=== PATIENT | female | born 1990 | race Caucasian/White ===

== ENCOUNTER 2019-12-29 06:59 | Observation (INO) ==
[2019-12-29] MEDS ORDERED: 0.9 % Sodium Chloride 1,000 ML IVC ONE (07:04)
[2019-12-29] MEDS ORDERED: *HR* HYDROmorphone (PF) 1 MG/ML SYRINGE IVP ONE ×3 (07:12→07:51)
[2019-12-29] MEDS ORDERED: Ondansetron 4 MG/2 ML VIAL IVP ONE (07:13)
[2019-12-29 07:23] LABS: Basophils % 0.1 %; Eosinophils # 0.2 K/mcL (0.0-0.6); Eosinophils % 3.2 %; Hematocrit 43.8 % (35.3-44.9); Hemoglobin 14.8 g/dL (11.5-15.4); Immature Granulocytes % 0.1 % (0-4); Lymphocytes # 2.2 K/mcL (0.6-4.6); Lymphocytes % 30.9 %; Mean Corpuscular HGB Conc 33.8 g/dL (31.6-35.5); Mean Corpuscular Hemoglobin 28.5 pg (28.0-33.3); Mean Corpuscular Volume 84.2 fL (83.0-100.0); Mean Platelet Volume 8.4 fL (9.4-12.4); Monocytes # 0.5 K/mcL (0.0-1.3); Monocytes % 6.7 %; Neutrophils # 4.2 K/mcL (1.6-8.9); Platelet Count 226 K/mcL (140-400); Red Cell Distribution Width 11.7 % (11.5-14.5); White Blood Count 7.1 K/mcL (4.3-11.1)
[2019-12-29 07:46] LABS: BUN/Creatinine Ratio 13 (6-26); Blood Urea Nitrogen 10 mg/dL (6-20); Calcium 9.4 mg/dL (8.6-10.3); Carbon Dioxide 28 mEq/L (23-29); Chloride 106 mEq/L (98-107); Glucose 104 mg/dL (70-105); Osmolality,Calculated 287 (280-300); Potassium 3.6 mEq/L (3.5-5.1); Sodium 139 mEq/L (136-145); eGFR For African Americans > 60 (> 60); eGFR For Non-African Americans > 60 (> 60)
[2019-12-29 08:26] LABS: Bilirubin,Urine Negative (Negative); Blood,Urine Large (Negative); Clarity,Urine Cloudy (Clear); Color,Urine Brown (Yellow); Glucose,Urine (UA) Normal (Normal); Ketones,Urine Negative (Negative); Protein,Urine 200 mg/dL (Neg-Trace); Urobilinogen,Urine Normal (Normal)
[2019-12-29 08:27] LABS: Leukocyte Esterase,Urine Negative (Negative); Nitrite,Urine Negative (Negative)
[2019-12-29 08:29] LABS: Bacteria,Urine Moderate per hpf (None-Few); Budding Yeast,Urine Few per hpf (None Seen); RBC,Urine TNTC per hpf (0-3); Squamous Epithelial Cell,Urine Few per hpf (None-Few); WBC,Urine 0-3 per hpf (0-3)
[2019-12-29] MEDS ORDERED: Ondansetron 4 MG/2 ML VIAL IVP PRN (09:18)
[2019-12-29] MEDS ORDERED: Naloxone 0.4 MG/ML INJ IVP PRN (09:18)
[2019-12-29] MEDS ORDERED: D5% in Water 1,000 ML IVC PRN (09:21)
[2019-12-29] MEDS ORDERED: Dextrose Gel 15 GM/37.5 ML TUBE PO PRN ×2 (09:21)
[2019-12-29] MEDS ORDERED: *HR* Dextrose 50 % in Water (Vial) 50 ML VIAL IVP PRN (09:21)
[2019-12-29 09:42] LABS: INR 1.1; Prothrombin Time 12.4 Seconds (9.4-12.1)
[2019-12-29 09:44] LABS: Activated Partial Thrombo Time 36.2 Seconds (26.0-36.0)
[2019-12-29] MEDS: *HR* OxyCODONE Immed Rel 5 MG TABLET PO PRN ×2 (11:07→21:05)
[2019-12-29] MEDS: cefTRIAXone 1,000 MG in Water for inj. (sterile) 10 ML IVP SCH (11:07)
[2019-12-29] MEDS: amLODIPine 5 MG TABLET PO SCH (11:07)
[2019-12-29] MEDS: Insulin LISPRO 300 UNITS/3 ML VIAL SQ SCH ×3 (12:28→23:22)
[2019-12-29] MEDS: Famotidine 20 MG/2 ML VIAL IVP SCH (23:18)
[2019-12-30 03:56] LABS: Basophils % 0.3 %; Eosinophils # 0.2 K/mcL (0.0-0.6); Eosinophils % 2.5 %; Hematocrit 39.7 % (35.3-44.9); Hemoglobin 13.3 g/dL (11.5-15.4); Immature Granulocytes % 0.1 % (0-4); Lymphocytes # 3.1 K/mcL (0.6-4.6); Lymphocytes % 40.8 %; Mean Corpuscular HGB Conc 33.5 g/dL (31.6-35.5); Mean Corpuscular Hemoglobin 28.6 pg (28.0-33.3); Mean Corpuscular Volume 85.4 fL (83.0-100.0); Mean Platelet Volume 8.9 fL (9.4-12.4); Monocytes # 0.5 K/mcL (0.0-1.3); Monocytes % 6.4 %; Neutrophils # 3.7 K/mcL (1.6-8.9); Platelet Count 209 K/mcL (140-400); Red Blood Count 4.65 M/mcL (3.82-4.97); Red Cell Distribution Width 11.6 % (11.5-14.5); Segmented Neutrophils % 49.9 %; White Blood Count 7.5 K/mcL (4.3-11.1)
[2019-12-30 04:15] LABS: BUN/Creatinine Ratio 15 (6-26); Blood Urea Nitrogen 9 mg/dL (6-20); Calcium 8.5 mg/dL (8.6-10.3); Carbon Dioxide 26 mEq/L (23-29); Chloride 107 mEq/L (98-107); Glucose 88 mg/dL (70-105); Magnesium 1.8 mg/dL (1.6-2.6); Osmolality,Calculated 286 (280-300); Phosphorous 3.2 mg/dL (2.7-4.5); Potassium 3.3 mEq/L (3.5-5.1); Sodium 139 mEq/L (136-145); eGFR For African Americans > 60 (> 60); eGFR For Non-African Americans > 60 (> 60)
[2019-12-30] MEDS: Famotidine 20 MG/2 ML VIAL IVP SCH (05:41)
[2019-12-30] MEDS: Insulin LISPRO 300 UNITS/3 ML VIAL SQ SCH ×2 (06:01→12:34)
[2019-12-30] MEDS: amLODIPine 5 MG TABLET PO SCH (08:06)
[2019-12-30] MEDS: cefTRIAXone 1,000 MG in Water for inj. (sterile) 10 ML IVP SCH (08:06)
[2019-12-30] MEDS ORDERED: *HR* HYDROmorphone PF 0.5 MG/0.5 ML SYRINGE IVP PRN (10:40)
[2019-12-30] MEDS ORDERED: *HR* FentaNYL (PF) 100 MCG/2 ML VIAL IVP PRN (10:40)
[2019-12-30] MEDS ORDERED: Dexamethasone 4 MG/ML VIAL IVP ONE (10:41)
[2019-12-30] MEDS ORDERED: Ondansetron 4 MG/2 ML VIAL IVP ONE (10:41)
[2019-12-30] MEDS ORDERED: Naloxone 0.4 MG/ML INJ IVP PRN ×2 (10:41→12:24)
[2019-12-30] MEDS ORDERED: Ketorolac 15 MG/ML VIAL IVP ONE (10:41)
[2019-12-30] MEDS ORDERED: Ringers Solution, Lactated 1,000 ML IVC SCH (10:45)
[2019-12-30] MEDS ORDERED: *HR* Propofol 200 MG/20 ML VIAL IVP ONE (10:48)
[2019-12-30] MEDS ORDERED: *HR* FentaNYL (PF) 100 MCG/2 ML VIAL ONE ×2 (10:48→11:26)
[2019-12-30] MEDS ORDERED: Dexamethasone 4 MG/ML VIAL ONE (10:50)
[2019-12-30] MEDS ORDERED: Lidocaine -MPF 2% 2 ML VIAL ONE (10:50)
[2019-12-30] MEDS ORDERED: Ondansetron 4 MG/2 ML VIAL ONE (10:50)
[2019-12-30] MEDS ORDERED: Ketorolac 30 MG/ML VIAL ONE (10:53)
[2019-12-30] MEDS ORDERED: Dextrose Gel 15 GM/37.5 ML TUBE PO PRN ×2 (12:24)
[2019-12-30] MEDS ORDERED: Ondansetron 4 MG/2 ML VIAL IVP PRN (12:24)
[2019-12-30] MEDS ORDERED: *HR* OxyCODONE Immed Rel 5 MG TABLET PO PRN (12:24)
[2019-12-30] MEDS ORDERED: D5% in Water 1,000 ML IVC PRN (12:24)
[2019-12-30] MEDS ORDERED: *HR* Dextrose 50 % in Water (Vial) 50 ML VIAL IVP PRN (12:24)
[2019-12-30 13:23] VITALS: BP 122/80
[2019-12-30] MEDS ORDERED: Insulin LISPRO 300 UNITS/3 ML VIAL SQ SCH (18:00)
[2019-12-31] MEDS ORDERED: cefTRIAXone 1,000 MG in Water for inj. (sterile) 10 ML IVP SCH (09:00)
[2019-12-31] MEDS ORDERED: amLODIPine 5 MG TABLET PO SCH (09:00)
== END 2019-12-30 14:28 | disposition home or self-care (01) ==
LOC: EMEROOARM 06:59 → 3BNU 06:59 → SUATTDRO 09:34 → 3BNU 10:13
PROVIDERS: ADMIT Internal Medicine; ATTEND Internal Medicine